=== PATIENT | male | born 1965 | race Caucasian/White ===

== ENCOUNTER 2025-01-12 14:48 | Emergency (ER) | payer MEDICAID ==
[2025-01-12 16:32] LABS: BASOPHILS ABSOLUTE AUTO 0.1 x10-3/uL (0.0-0.3); BASOPHILS PERCENT AUTO 1.1 % (0.3-3.8); EOSINOPHILS ABSOLUTE AUTO 0.0 x10-3/uL (0.0-0.6); EOSINOPHILS PERCENT AUTO 0.3 % (0.1-6.8); LYMPHOCYTES ABSOLUTE AUTO 1.1 x10-3/uL (0.5-4.5); LYMPHOCYTES PERCENT AUTO 11.0 % (15.8-45.3); MEAN PLATELET VOLUME 9.5 fL (6.7-11.0); MONOCYTES ABSOLUTE AUTO 1.0 x10-3/uL (0.0-1.2); MONOCYTES PERCENT AUTO 10.3 % (5.5-15.2); NEUTROPHILS ABSOLUTE AUTO 7.8 x10-3/uL (1.7-6.9); NEUTROPHILS PERCENT AUTO 77.3 % (40.3-71.8); PLATELET COUNT,PLT 309 x10(3)uL (117-477); RED BLOOD CELL COUNT 4.79 x10(6)uL (3.90-5.90); RED CELL DISTRIBUTION WIDTH 14.0 % (12.4-15.0); WHITE BLOOD CELL COUNT,WBC 10.1 x10-3/uL (3.2-10.1)
[2025-01-12 16:36] LABS: BLOOD UREA NITROGEN,BUN 14 mg/dL (7-18); CARBON DIOXIDE,CO2 32 mmol/L (21-32); CHLORIDE,CL 98 mmol/L (100-110); CREATININE 0.9 mg/dL (0.70-1.30); ESTIMATED GFR 100 mL/min (>60); GLUCOSE RANDOM 101 mg/dL (80-116); POTASSIUM,K 3.9 mmol/L (3.5-5.3); SODIUM,NA 137 mmol/L (135-145)
[2025-01-12 16:42] LABS: A/G RATIO 0.6; ALANINE AMINOTRANSFERASE,ALT 20 U/L (12-36); ASPARTATE AMNIOTRANSFERASE,AST 19 IU/L (5-25); BILIRUBIN TOTAL 0.8 mg/dL (0.1-1.3); PROTEIN TOTAL,TP 8.3 g/dL (6.0-8.0)
[2025-01-12 16:53] LABS: LACTIC ACID 2.2 mmol/L (0.4-2.0)
[2025-01-12] MEDS: Sodium Chloride 0.9% 10 ML Syringe FLUSH PRN (17:46)
[2025-01-12 17:58] VITALS: BP 142/60; PULSE 79
== END 2025-01-12 19:10 ==
LOC: FB.ED 14:48
DX: M17.0 Bilateral primary osteoarthritis of knee (principal); L89.323 Pressure ulcer of left buttock, stage 3; B37.2 Candidiasis of skin and nail; L03.317 Cellulitis of buttock; I10 Essential (primary) hypertension; M10.9 Gout, unspecified; F17.200 Nicotine dependence, unspecified, uncomplicated; Z79.899 Other long term (current) drug therapy
CPT/HCPCS: 36415; 73560; 80053; 83605; 85025; 85379; 87040; 96374; 99284; A9270; J0696